=== PATIENT | male | born 1980 | race Caucasian/White ===

== ENCOUNTER 2016-07-26 18:54 | Emergency (ER) | payer OTHER ==
--- NOTE | ~2016-07-26 | ER ---
PATIENT'S NAME: SABAS MCCAULEY [facility] AGE: 35 Y [address] ROOM: [place] [address] LOCATION: [facility] ADMIT DATE: 07/26/2016 ER/Outpatient Report DISCHARGE DATE: 07/26/2016 FAMILY PHYSICIAN: Filippo Hair MD ATTENDING PHYSICIAN: Charles Ellsworth Time of Arrival: 1854 hours. Time of Evaluation: 1905 hours. CHIEF COMPLAINT: Right ankle injury. HISTORY OF PRESENT ILLNESS: This is a 35-year-old male, who presents to the ER with a right ankle injury that happened just prior to arrival. 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 He states he instantly fell to the ground, and he is having unable to bear weight on it secondary to the pain. The patient states he has never injured this ankle before. He denies any other injury at this time. ALLERGIES: NO KNOWN ALLERGIES. MEDICATIONS: Please see medication list in nurse's notes. PAST MEDICAL HISTORY: Negative. PAST SURGICAL HISTORY: Bristow teeth removal and a broken nose repair. SOCIAL HISTORY: Drinks alcohol occasionally. Denies any smoking use. REVIEW OF SYSTEMS: CONSTITUTIONAL: Denies any change in weight or fatigue. MUSCULOSKELETAL: He is complaining of right ankle pain. SKIN: No lesions or rashes. PHYSICAL EXAMINATION: VITAL SIGNS: Height 6 feet stated, weight 96.3 kg taken, blood pressure is 145/79, pulse 85, respirations 18, temperature 98.6 degrees tympanically. Jenae Coma Score is 15. GENERAL: Alert, anxious 35-year-old, in mild distress. EXTREMITIES: No PATIENT'S NAME: SABAS MCCAULEY [facility] AGE: 35 Y [address] ROOM: [place] [address] LOCATION: [facility] ADMIT DATE: 07/26/2016 ER/Outpatient Report DISCHARGE DATE: 07/26/2016 FAMILY PHYSICIAN: Filippo Hair MD ATTENDING PHYSICIAN: Charles Ellsworth clubbing or cyanosis. He does have erythema noted to the lateral side of his ankle. He does have a small abrasion noted to that area just above his right lateral malleolus. He does have tenderness that extends just below the right malleolus. He has no tenderness with palpation in his right metatarsals. No tenderness on the medial malleolus. He does have decreased range of motion of his right foot secondary to pain. NEURO: Cranial nerves 2 through 12 grossly intact. Gait was not observed. LABORATORY DATA: None were done. X-RAYS: X-rays of the right ankle showed no obvious fracture. IMPRESSION: Right ankle injury. ASSESSMENT AND PLAN: I discussed the patient's care with Dr. Young. Dr. Young also evaluated the x-ray. We will dismiss the patient to home with a CAM walking boot for support. He needs to ambulate with crutches, touch toe weightbearing as tolerated, ice and elevate, take Tylenol or ibuprofen as needed for pain control, and follow up with his primary care physician if he does not improve. The patient understands and agrees with care. VEE SCHERER PA-C FOR DO ABNER MYERS/jase /[id number] d: 07/27/16 0338 t: 07/31/16 0920, OUTPATIENT REPORT
== END 2016-07-26 20:26 | disposition disaster alternative care site (69) ==
LOC: GACC 18:54
DX: S90.511A Abrasion, right ankle, initial encounter (principal); Z79.899 Other long term (current) drug therapy; W22.8XXA Striking against or struck by other objects, initial encounter

== ENCOUNTER 2016-08-21 21:53 | Emergency (ER) | payer OTHER ==
--- NOTE | ~2016-08-21 | ER ---
PATIENT'S NAME: SABAS MCCAULEY [facility] AGE: 35 Y [address] ROOM: [place] [address] LOCATION: [facility] ADMIT DATE: 08/21/2016 ER/Outpatient Report DISCHARGE DATE: 08/21/2016 FAMILY PHYSICIAN: Filippo Hair MD ATTENDING PHYSICIAN: John Young Admission date and time documented in the medical record. I saw the patient at 2205 hours. CHIEF COMPLAINT: Right shoulder injury. HISTORY OF PRESENT ILLNESS: The patient is a 35-year-old male, who injured his right shoulder at softball [employer]. He slid into home, injured his arm, and then dove for a fly ball in the outfield and reinjured it. His injuries happened around 2000 hours. He has pain to the anterior aspect of his right shoulder. No tenderness over the deltoid. He has markedly restricted range of motion of his shoulder. It is not dislocated. Does not appear to be . Neurovascularly intact. Pulse intact. Strength intact. No injury to the elbow, forearm, or wrist. Moves his fingers okay. No open wounds. No other injuries. No head pain, neck pain, spine pain, chest pain, or abdominal pain. No shortness of breath. HOME MEDICATIONS: None. ALLERGIES: NONE. SOCIAL HISTORY: Nonsmoker. Occasional intake of alcohol. SIGNIFICANT PAST MEDICAL HISTORY: Negative. OPERATIONS: Vasectomy and dental surgery. REVIEW OF SYSTEMS: All systems reviewed by me are negative with the exception of those discussed in the history of present illness. PHYSICAL EXAMINATION: VITAL SIGNS: Pulse 87, respirations 18, blood pressure 135/74, and O2 PATIENT'S NAME: SABAS MCCAULEY [facility] AGE: 35 Y [address] ROOM: [place], [place] [address] LOCATION: [facility] ADMIT DATE: 08/21/2016 ER/Outpatient Report DISCHARGE DATE: 08/21/2016 FAMILY PHYSICIAN: Filippo Hair MD ATTENDING PHYSICIAN: John Young saturation room air is 96%. EXTREMITIES: On examination of the shoulder, the patient has tenderness over the anterior aspect of his right shoulder. Also has tenderness over the bicipital groove. No tenderness over the biceps tendon. He has pain with minimal flexion, extension, and abduction. There is no deformity on looking at his shoulder. Pulse intact. Neurovascularly intact. Strength appears to be intact. SPINE: No tenderness in his cervical spine. LUNGS: Clear. HEART: Regular. NEUROVASCULAR: Intact. IMAGING DATA: X-ray of the right shoulder showed no fracture, dislocation, or separation. We will review x-ray with the radiologist. IMPRESSION: Right shoulder injury. No fracture, dislocation, or separation was noted. The patient may need to have an MRI to rule out a rotator cuff tear or labral tear if he does not improve. PLAN: The patient was placed in a right shoulder immobilizer, discharged home, observation. Activity as tolerated. No work for 2 days. Ice to right shoulder aggressively for 72 hours. [place] 7.5/325 as needed for pain. Naprosyn 500 twice a day with food. Follow up with personal physician or orthopedic surgeon in 5 to 7 days. Discussed my findings with the patient, he understands. MD FARIDEH ROPER/modl /[id number] d: 08/22/16 0335 t: 08/22/16 181, OUTPATIENT REPORT
== END 2016-08-21 22:42 | disposition disaster alternative care site (69) ==
LOC: GACC 21:53
DX: S49.91XA Unspecified injury of right shoulder and upper arm, initial encounter (principal); Z98.52 Vasectomy status; Z98.890 Other specified postprocedural states; W21.07XA Struck by softball, initial encounter; Y93.64 Activity, baseball